=== PATIENT | female | born 1980 | race Caucasian/White ===

== ENCOUNTER 2016-09-11 14:25 | Outpatient (CLI) | payer MEDICARE, OTHER | END 2016-09-11 14:26 | disposition home or self-care (01) | DX: R10.9 Unspecified abdominal pain (principal); R31.9 Hematuria, unspecified ==

== ENCOUNTER 2016-10-13 10:42 | Outpatient (CLI) | payer MEDICARE, OTHER | END 2016-10-13 10:43 | disposition home or self-care (01) | DX: Q05.9 Spina bifida, unspecified (principal); Q76.49 Other congenital malformations of spine, not associated with scoliosis; N31.9 Neuromuscular dysfunction of bladder, unspecified; R33.9 Retention of urine, unspecified ==

== ENCOUNTER 2017-01-15 10:31 | Outpatient (CLI) | payer MEDICARE, OTHER | END 2017-01-15 10:32 | disposition home or self-care (01) | LOC: LAB.R 10:31 | PROVIDERS: ATTEND Family Medicine | DX: R35.0 Frequency of micturition (principal) | CPT/HCPCS: 87077; 87086 ==